=== PATIENT | female | born 1955 | race Two or more races ===

== ENCOUNTER 2020-03-26 13:56 | Emergency (ER) | payer OTHER ==
[~2020-03-26] VITALS: Ht 170.2 cm; Wt 72.6 kg
[~2020-03-26 13:56] MED LIST: LEVAQUIN750 MG PO; SYNTHROID112 MCG
== END 2020-03-26 19:31 | disposition home or self-care (01) ==
LOC: ER 13:56
DX: K29.60 Other gastritis without bleeding (principal); Z03.818 Encounter for observation for suspected exposure to other biological agents ruled out; R19.7 Diarrhea, unspecified; R11.2 Nausea with vomiting, unspecified

== ENCOUNTER 2022-05-01 09:42 | Outpatient (CLI) | payer OTHER | END 2022-05-01 09:57 | disposition home or self-care (01) | LOC: PPH VACUNA 09:42 | PROVIDERS: ATTEND Emergency Medicine Pediatric Emergency Medicine | DX: Z23 Encounter for immunization (principal) ==

== ENCOUNTER 2024-02-06 14:52 | Outpatient (CLI) | payer OTHER | END 2024-02-06 16:15 | disposition home or self-care (01) | LOC: RAD 14:52 | PROVIDERS: ATTEND Internal Medicine | DX: J20.9 Acute bronchitis, unspecified (principal) ==